=== PATIENT | female | born 1970 | race Caucasian/White ===

== ENCOUNTER 2021-05-16 07:17 | Day surgery (SDC) | payer OTHER ==
[~2021-05-16 07:17] MED LIST: Lactated Ringers 1,000 ML IV SCH; Sodium Chloride 0.9% 10 ML SDV IV PRN; Sodium Chloride 0.9% 10 ML Syringe FLUSH PRN; Sodium Chloride 0.9% 2.5 ML Syringe FLUSH PRN
[2021-05-16] MEDS ORDERED: Glycopyrrolate 0.2 MG/ML SDV ONE (07:34)
[2021-05-16] MEDS ORDERED: Propofol 200 MG/20 ML SDV ONE (07:36)
[2021-05-16] MEDS ORDERED: Dexamethasone 4 MG/ML 5 ML MDV ONE (07:36)
--- NOTE | 2021-05-16 08:11 | PCM.PREANE ---
Preanesthetic Assessment - Procedure Proposed Procedure: EGD, Colonoscopy - Anesthesia/Transfusion/Family Hx Anesthesia History: Prior Anesthesia Without Reaction Transfusion History: No Prior Transfusion(s) - Review of Systems General: Night Sweats Pulmonary: No Symptoms Cardiovascular: No Symptoms Gastrointestinal: No Symptoms Neurological: No Symptoms Other: Reports: None (GERD, h/o kidney stones) - Physical Assessment NPO Status Date: 05/14/21 NPO Status Time: 18:00 Vital Signs: Last Vital Signs Temp 97.0 F 05/16/21 07:27 Pulse 95 05/16/21 07:27 Resp 16 05/16/21 07:27 BP 150/76 H 05/16/21 07:27 Pulse Ox 100 05/16/21 07:27 Height: 5 ft 6.5 in Weight: 91.626 kg ASA Class: 2 Airway Class: Mallampati = 2 Dentition: Reports: Normal Dentition (2 implants) Thyro-Mental Finger Breadths: 3 Mouth Opening Finger Breadths: 3 ROM/Head Extension: Full Lungs: Clear to Auscultation, Normal Respiratory Effort Cardiovascular: Regular Rate, Regular Rhythm - Allergies Allergies/Adverse Reactions: Allergies Allergy/AdvReac Type Severity Reaction Status Date / Time Sulfa (Sulfonamide Allergy Headache Verified 05/10/21 07:25 Antibiotics) - Acknowledgements Anesthesia Type Planned: General Anesthesia Pt an Appropriate Candidate for the Planned Anesthesia: Yes Alternatives and Risks of Anesthesia Discussed w Pt/Guardian: Yes Pt/Guardian Understands and Agrees with Anesthesia Plan: Yes PreAnesthesia Questionnaire HEENT History: Reports: Other (See Below) Other HEENT History: wears glasses, has dental implants Cardiovascular History: Reports: None Respiratory History: Reports: None Gastrointestinal History: Reports: GERD, Irritable Bowel Syndrome Genitourinary History: Reports: Renal Calculus [employer] PERSON History: Reports: Ectopic , Musculoskeletal History: Reports: Fracture Other Musculoskeletal History: hx fx wrist Neurological History: Reports: None Psychiatric History: Reports: None Endocrine/Metabolic History: Reports: Obesity/BMI 30+ Hematologic History: Reports: None Immunologic History: Reports: None Oncologic (Cancer) History: Reports: None Dermatologic History: Reports: None - Past Surgical History Head Surgeries/Procedures: Reports: None HEENT Surgical History: Reports: Tonsillectomy Cardiovascular Surgical History: Reports: None Respiratory Surgical History: Reports: None GI Surgical History: Reports: Cholecystectomy, Colonoscopy Female Surgical History: Reports: Hysterectomy, Other (See Below) Other Female Surgeries/Procedures: laparotomy for ectopic Endocrine Surgical History: Reports: None Neurological Surgical History: Reports: None Musculoskeletal Surgical History: Reports: None Oncologic Surgical History: Reports: None Dermatological Surgical History: Reports: None - SUBSTANCE USE Tobacco Use Status *Q: Never Tobacco User - HOME MEDS Home Medications: Home Meds Cider Vinegar [Apple Cider Vinegar] 300 mg PO DAILY 05/10/21 [History] Diclofenac Sodium 50 mg PO BID PRN 05/10/21 [History] Omeprazole 40 mg PO DAILY 05/10/21 [History] Ergocalciferol (Vitamin D2) [Vitamin D2] 50,000 units PO WEEKLY 05/11/21 [History] - CURRENT (IN HOUSE) MEDS Current Meds: Current Medications Lactated Ringer's (Ringers, Lactated) 1,000 mls @ 125 mls/hr IV ASDIRECTED MANGO Last Admin: 05/16/21 07:41 Dose: 125 mls/hr Documented by: Sodium Chloride (Sodium Chloride 0.9% 10 Ml Syringe) 10 ml FLUSH ASDIRECTED PRN PRN Reason: Keep Vein Open Sodium Chloride (Sodium Chloride 0.9% 2.5 Ml Syringe) 2.5 ml FLUSH ASDIRECTED PRN PRN Reason: Keep Vein Open Sodium Chloride (Sodium Chloride 0.9% 10 Ml Syringe) 10 ml FLUSH ASDIRECTED PRN PRN Reason: Keep Vein Open Sodium Chloride (Sodium Chloride 0.9% 2.5 Ml Syringe) 2.5 ml FLUSH ASDIRECTED PRN PRN Reason: Keep Vein Open Sodium Chloride (Sodium Chloride 0.9% 10 Ml Sdv) 10 ml IV ASDIRECTED PRN PRN Reason: IV Use Discontinued Medications Dexamethasone (Dexamethasone 4 Mg/Ml 5 Ml Mdv) Confirm Administered Dose 20 mg .ROUTE .STK-MED ONE Stop: 05/16/21 07:37 Glycopyrrolate (Glycopyrrolate 0.2 Mg/Ml Sdv) Confirm Administered Dose 0.2 mg .ROUTE .STK-MED ONE Stop: 05/16/21 07:35 Lidocaine HCl (Lidocaine 1% 5 Ml Sdv) Confirm Administered Dose 5 ml .ROUTE .STK-MED ONE Stop: 05/16/21 07:35 Propofol (Propofol 200 Mg/20 Ml Sdv) Confirm Administered Dose 600 [address] .[address]TE .[facility] ONE Stop: 05/16/21 07:37
[2021-05-16] MEDS ORDERED: Ondansetron 4 MG/2 ML SDV ONE (08:41)
--- NOTE | 2021-05-16 09:39 | PCM.POSTAN ---
POST ANESTHESIA ASSESSMENT - MENTAL STATUS Mental Status: Somnolent - VITAL SIGNS Vital Signs: Last Vital Signs Temp 97.0 F 05/16/21 07:27 Pulse 75 05/16/21 09:34 Resp 10 L 05/16/21 09:34 BP 107/67 05/16/21 09:34 Pulse Ox 100 05/16/21 09:34 - RESPIRATORY Respiratory Status: Respiratory Rate WNL, Airway Patent - CARDIOVASCULAR CV Status: Pulse Rate WNL, Blood Pressure Stable - GASTROINTESTINAL GI Status: No Symptoms - PAIN Free Text/Narrative:: Resting comfortably - POST OP HYDRATION Hydration Status: Adequate & Stable
--- NOTE | 2021-05-16 09:47 | PCM48HPAN ---
Post Anesthesia Note - EVALUATION WITHIN 48HRS OF ANESTHETIC Vital Signs in Normal Range: Yes Patient Participated in Evaluation: Yes Respiratory Function Stable: Yes Airway Patent: Yes Cardiovascular Function Stable: Yes Hydration Status Stable: Yes Pain Control Satisfactory: Yes Nausea and Vomiting Control Satisfactory: Yes Mental Status Recovered: Yes Vital Signs: Last Vital Signs Temp 97.0 F 05/16/21 07:27 Pulse 88 05/16/21 09:44 Resp 12 05/16/21 09:44 BP 113/80 05/16/21 09:44 Pulse Ox 100 05/16/21 09:44 - COMMENTS/OBSERVATIONS Free Text/Narrative:: Pt doing well post-op. VSS. No apparent anesthetic complications. Dr. Torres Hinojosa
--- NOTE | 2021-05-17 16:28 | OR ---
SURGEON: YNES GUTIERREZ MD DATE OF PROCEDURE: 05/16/2021 PREOPERATIVE DIAGNOSES: 1. Hiatal hernia. 2. Gastroesophageal reflux disease. 3. Change in bowel habits. POSTOPERATIVE DIAGNOSES: 1. Hiatal hernia associated with gastroesophageal reflux disease and esophagitis. 2. Gastritis. 3. Hyperplastic gastric polyps. PROCEDURES PERFORMED: Diagnostic esophagogastroduodenoscopy and colonoscopy. PRIMARY SURGEON: Ynes Gutierrez MD ANESTHESIA: MAC. INSTRUMENTS USED: Olympus endoscope and colonoscope. EXTENT OF EXAM: To the second portion of the duodenum, to the cecum. PREPARATION: Good. LIMITATIONS: None. INDICATIONS FOR EXAMINATION: The patient is a 51-year-old female who presented to my clinic with concerns of GERD, swallowing difficulty, as well as a change in her bowel habits. She had a preoperative esophagram that showed a small sliding hiatal hernia associated with mild reflux and questionable hyperplastic gastric polyps. The patient and I discussed these results, but both agreed to perform a diagnostic EGD and colonoscopy. I explained the procedure, expected perioperative course, and the risks. She verbalized understanding and wishes to proceed. PROCEDURE IN DETAIL: The patient was brought in to the endoscopy suite and placed in the left lateral decubitus position. A time-out was completed verifying the patient's name, age, date of , allergies, and procedure to be performed. A bite block was placed in the patient's mouth. Monitored anesthesia care was induced and continuous oxygen was provided via face mask throughout the procedure. After adequate sedation was achieved, a well-lubricated endoscope was placed in the patient's mouth and advanced under direct visualization to the second portion of duodenum. This appeared normal and a photograph was taken. The scope was then fully withdrawn while examining the color, texture, anatomy, and integrity mucosa of the upper GI tract. The duodenum appeared normal. The scope was brought into the stomach and a was photograph taken of the pylorus and GE junction. The patient was noted to have a small hiatal hernia. In the gastric antrum and body, there were multiple hyperplastic appearing gastric polyps. One of these was removed and sent to Pathology for histologic review. Biopsies were taken of the gastric antrum, body, and fundus. The patient was noted to have some mild gastritis within the antrum. The scope was then brought into the hiatal hernia sac and a photograph was taken. At the Z-line, there was a small ulcerated area. A photograph of this was taken. There was evidence of esophagitis along the distal esophagus. A biopsy was taken 1 cm above the Z- line and sent to Pathology. There was no evidence of stricture or any other ulceration or inflammation of the remainder of the esophagus. The scope was removed and this portion of procedure terminated. A digital rectal exam was performed. This exam was within normal limits. A well-lubricated colonoscope was inserted in the rectum and advanced under direct visualization to the level of the cecum. The cecum was identified by both visual and anatomic landmarks. A photograph was taken of the cecal cap as well as with the scope retroflexed within the cecum. The scope was then fully withdrawn while examining the color, texture, anatomy, and integrity of mucosa from the cecum to the anal canal. The findings were consistent with normal colonic mucosa. The scope was then brought into the rectum and retroflexed to allow visualization of the anal canal opening. This appeared normal and a photograph was taken. The scope was straightened out and fully withdrawn. The cecum to anus time was 11 minutes. The patient tolerated the procedure well and was transferred to the PACU in stable condition. ENDOSCOPIC DIAGNOSES: 1. Hiatal hernia associated with gastroesophageal reflux disease and esophagitis. 2. Gastritis. 3. Hyperplastic gastric polyps. RECOMMENDATIONS: I visited with the patient in the postoperative area. I will switch her to pantoprazole 40 mg daily and add sucralfate t.i.d. I encouraged her to avoid any acidic, spicy, or highly caffeinated foods. She should also avoid NSAIDs at this time. I will follow up with her in clinic in two weeks. VALDO CHE /[id number]
== END 2021-05-16 10:25 | disposition home or self-care (01) ==
LOC: MW.SDS 07:17
PROVIDERS: ATTEND Surgery
DX: R19.4 Change in bowel habit (principal); K44.9 Diaphragmatic hernia without obstruction or gangrene; K21.00 Gastro-esophageal reflux disease with esophagitis, without bleeding; K31.7 Polyp of stomach and duodenum; R13.10 Dysphagia, unspecified; E66.9 Obesity, unspecified; K29.70 Gastritis, unspecified, without bleeding; Z88.2 Allergy status to sulfonamides; Z79.899 Other long term (current) drug therapy; Z90.49 Acquired absence of other specified parts of digestive tract; Z98.890 Other specified postprocedural states; Z68.32 Body mass index [BMI] 32.0-32.9, adult
CPT/HCPCS: 43239; 45380; J1100; J2405; J2704; J3490; J7120; 00813